=== PATIENT | female | born 1965 | race American Indian/Alaskan Native ===

== ENCOUNTER 2020-09-14 11:30 | Outpatient (CLI) | payer OTHER ==
--- NOTE | 2020-09-14 12:29 | XRay Report ---
RIGHT KNEE 3 VIEWS INDICATION / CLINICAL INFORMATION: RIGHT KNEE PAIN. COMPARISON: None available. FINDINGS: Mild lateral degenerative change. Bony density adjacent to the medial femoral condyle may represent o ld avulsion injury. No other significant skeletal abnormality Signer Name: You Cason MD FACR Signed: 09/14/2020 12:24 PM Workstation Name: [id number]
== END 2020-09-14 11:31 | disposition home or self-care (01) ==
LOC: XRAY 11:30
PROVIDERS: ATTEND Orthopaedic Surgery
DX: M17.11 Unilateral primary osteoarthritis, right knee (principal)

== ENCOUNTER 2020-10-14 06:47 | Inpatient (IN) | payer OTHER ==
--- NOTE | 2020-10-11 10:04 | Anesthesia Day of Surgery ---
Anesthesia Day of Surgery - Day of Surgery Patient Examined: Yes Patient H&P Reviewed: Yes Patient is NPO: Yes
--- NOTE | 2020-10-11 10:05 | Anesthesia Consultation ---
Anesthesia Consult and Med Hx Date of service: 10/14/20 - Airway Anesthetic Teeth Evaluation: Chipped, Crowns ROM Head & Neck: Adequate Mental/Hyoid Distance: Adequate Mallampati Class: Class III Intubation Access Assessment: Probably Good - Pre-Operative Health Status ASA Pre-Surgery Classification: ASA2 Proposed Anesthetic Plan: General (Pt requested GA; declined SAB) Nerve Block: AC - Pulmonary Hx Smoking: Yes (STOPPED X 45 DAYS-BLACK & MILDS 2/ DAY) Hx Respiratory Symptoms: No (+2FS) Hx Sleep Apnea: No (SCOUT PRE SCREEN LOW RISK.) - Cardiovascular System Hx Hypertension: Yes (X 8 YRS) - Central Nervous System Hx Psychiatric Problems: No - Endocrine Hx Renal Disease: No Hx Liver Disease: No Hx Non-Insulin Dependent Diabetes: No - Hematic Hx Anemia: No Hx Sickle Cell Disease: No - Other Systems Hx Cancer: No
[2020-10-11 10:57] LABS: Hematocrit 40.4 % (30.3-42.9); Hemoglobin 13.3 gm/dl (10.1-14.3); Mean Corpuscular HGB Conc 33 % (30-34); Mean Corpuscular Volume 88 fl (79-97); Platelet Count 271 K/mm3 (140-440); Red Blood Count 4.59 M/mm3 (3.65-5.03); Red Cell Distribution Width 16.1 % (13.2-15.2)
[2020-10-11 11:27] LABS: Alanine Aminotransferase 19 units/L (7-56); Blood Urea Nitrogen 12 mg/dL (7-17); Calcium 9.1 mg/dL (8.4-10.2); Hemolysis Index 8
[2020-10-11 11:37] LABS: BUN/Creatinine Ratio 24
[~2020-10-14 06:47] MED LIST: BUPIVACAINE/PF (0.5%) 5 MG/1 ML 30 ML VIAL INFILTRATI ONE; KETOROLAC 30 MG/1 ML INJ ONE; MORPHINE 10 MG/1 ML INJ ONE; SODIUM CHLORIDE 0.9% 100 ML ONE; SODIUM CHLORIDE 0.9% 250ML 250 ML ONE; TRANEXAMIC ACID 1,000 MG/10 ML ONE; ceFAZolin/Water 2 GM/20 ML 2 GM/20 ML SYRINGE IV NR
[2020-10-14] MEDS ORDERED: LACTATED RINGERS 1,000 ML IV SCH (08:00)
--- NOTE | 2020-10-14 08:13 | Anesthesia Day of Surgery ---
Anesthesia Day of Surgery - Day of Surgery Patient Examined: Yes Patient H&P Reviewed: Yes Patient is NPO: Yes
[2020-10-14] MEDS ORDERED: LACTATED RINGERS 1,000 ML ONE (08:23)
[2020-10-14] MEDS ORDERED: ROPIVACAINE/PF (0.5%) 5 MG/1 ML 30 ML VIAL ONE (08:24)
[2020-10-14] MEDS ORDERED: fentaNYL 100 MCG/2 ML INJ ONE (08:24)
[2020-10-14] MEDS ORDERED: MIDAZOLAM 2 MG/2 ML INJ ONE (08:24)
[2020-10-14] MEDS ORDERED: LIDOCAINE (1%) 10 MG/1 ML VIAL 20 ML MDV ONE (08:28)
[2020-10-14] MEDS ORDERED: propofoL 200 MG/20 ML VIAL IV ONE ×4 (09:49→11:15)
--- NOTE | 2020-10-14 10:16 | Event Note ---
Date: 10/14/20 Pt ID'd and consented for spinal anesthesia. Skin prepped and draped. Spinal site ID'd (L3/L4). Local (lidocaine 1% 3ml) to skin. Spinal introducer to skin. Spinal needle inserted. + for CSF. - for blood. Aspiration and swirl noted in syringe. Bipivicaine 9mg injected. Pt laid flat. No distress noted. Vitals remain stable.
[2020-10-14] MEDS ORDERED: BUPIVACAINE/PF (0.5%) 5 MG/1 ML 30 ML VIAL INFILTRATI ONE (10:41)
[2020-10-14] MEDS ORDERED: KETOROLAC 30 MG/1 ML INJ IV ONE (10:42)
[2020-10-14] MEDS ORDERED: MORPHINE 10 MG/1 ML INJ IM ONE (10:42)
[2020-10-14] MEDS ORDERED: SODIUM CHLORIDE 0.9% 250 ML IVPB IV ONE (10:43)
[2020-10-14] MEDS ORDERED: SODIUM CHLORIDE 0.9% IRR 1,500 ML BOTTLE IR ONE (10:43)
[2020-10-14] MEDS ORDERED: WATER FOR IRRIG STERILE 1,500 ML BOTTLE IR ONE (10:45)
[2020-10-14] MEDS ORDERED: PROMETHAZINE 25 MG RECT SUPP PR PRN (11:33)
[2020-10-14] MEDS ORDERED: ZOLPIDEM 5 MG TAB PO PRN (11:33)
[2020-10-14] MEDS ORDERED: MAGNESIUM HYDROXIDE (MOM) ORAL LIQD UDC PO PRN (11:33)
[2020-10-14] MEDS ORDERED: IBUPROFEN 800 MG TAB PO PRN (11:33)
--- NOTE | 2020-10-14 11:44 | Procedure Note ---
Date of procedure: 10/14/20 Pre-op diagnosis: Severe arthritis right knee Post-op diagnosis: same Procedure: [Right] total knee replacement Procedure The patient was brought to the OR after being given a obturator nerve block and preoperative holding she was placed on the OR table supine position following induction elevation of anesthesia the patient is [right] lower extremity was prepped and draped in the usual sterile manner. A timeout procedure was done to identify the patient in the correct operative site. The leg was exsanguinated followed by inflation of the pneumatic tourniquet to 300 mmHg. A midline incision was made over the patella was taken down distally towards the tibial tubercle next the medial retinaculum was incised and the patella was inverted examination of the patient's knee joint revealed typical osteoarthritic changes with large bone spurs noted primarily in the medial compartment both the femoral and tibial's articular surfaces exhibited bare bone and large peripheral osteophytes next a large drill bit was used to enter the medullary canal this was followed by placement of the distal femoral cutting Jig the distal femur was resected approximately 8-9 mm of bone was removed at this time. Attention was turned to the patient's proximal tibia using a external alignme guide the bone was cut using the medial surface as the low point of care was taken to protect the medial collateral ligaments the tibial articular surface was then sized, A #4 tibial based ray was selected this was followed by placement of the fixation hole or keel into the proximal tibial artery medullary canal. Attention was turned to the distal femur and using a 4 and 1 cutting block a #4 component was selected AP anterior and posterior as well as Smith cuts were made a #4 femoral component was placed along with 10mm polyethylene tibial component and the knee was then taken to a range of motion she appeared to have stability in both the flexion and extension FOLLOWING this the trial components were removed the knee was then copiously irrigated any remaining soft tissue and bony debris were removed at this time next the cement was next and following this the tibial components were inserted beginning with the based ray followed by the polyethylene insert The femoral component was added the excess were removed the knee was held in extension until the cement hardened following hardening of cement the knee was then brought back into of flexion any remaining soft tissue and bony debris were removed at this time. The wound again was irrigated and was closed in a standard routine fashion. Dressings were applied the patient tolerated the procedure there were no complications she was then taken to post anesthesia recover Anesthesia: regional Surgeon: AMI COLLINS Mechanical Cad Designer: LYNDON JACOBS Estimated blood loss: 50-100ml Pathology: none Condition: stable Disposition: PACU
[2020-10-14] MEDS ORDERED: ONDANSETRON 4 MG/2 ML INJ IV PRN (12:17)
[2020-10-14] MEDS ORDERED: HYDROmorphone 1 MG/1 ML INJ ONE ×2 (12:17→12:42)
[2020-10-14] MEDS ORDERED: HYDROmorphone 1 MG/1 ML INJ IV PRN (12:17)
[2020-10-14] MEDS: HYDROmorphone 1 MG/1 ML INJ IV PRN ×2 (12:19→12:29)
--- NOTE | 2020-10-14 12:32 | XRay Report ---
RIGHT KNEE 2 VIEWS INDICATION / CLINICAL INFORMATION: Postop evaluation. COMPARISON: None available. FINDINGS: Right total knee arthroplasty. Normal alignment. Signer Name: You Cason MD FACR Signed: 10/14/2020 12:28 PM Workstation Name: [id number]
--- OUTSIDE RECORDS SUMMARY | 2020-10-14 14:31 | External Medical Summary ---
:1965 Author Organization [facility], [facility] Address [address] [place] [address] Care Team Providers Name Role Phone Jason Lloyd Unavailable [phone] PROBLEMS Type Condition ICD9-CM [id number] Onset Condition SNOMED Code Notes Code Code Dates Status Problem Unilateral M17.11 Active 548456179 primary osteoarthritis , right knee ALLERGIES No Known Allergies ENCOUNTERS from 1965 to 2020-10-14 Encounter Location Date Provider Diagnosis [facility] [address] [place] [address] Sep, [place] [address] IMMUNIZATIONS No Information SOCIAL HISTORY Sex Assigned At : Social History Observation Description Sex Assigned At Unknown REASON FOR REFERRAL from 1965 to 2020-10-14 Diagnosis 1 Unilateral primary osteoarth ritis, right knee Referral Organization [facility] Referring Provider First Name Jason Referring Provider Last Name Gabino Referring Provider Specialty Orthopedic Surgery Referring Provider Referring Provider email [email or web address] Referred Provider [facility], - Referral Priority Routine VITAL SIGNS No information MEDICATIONS Medication SIG (Take, Route, Notes Start Date End Date Status Frequency, Duration) Ambien 10 MG 1 tablet at bedtime as Active needed Orally Once a day Percocet 5-325 mg 30 one or two tablets orally Sep, 0 Active 5-325 mg every four to six hours prn pain Linzess 145 MCG 1 capsule at least 30 Active minutes before the first meal of the day on an empty stomach Orally Once a day for 30 day(s) PROCEDURES No Information RESULTS No Results REASON FOR VISIT Total Knee Replacement MEDICAL (GENERAL) HISTORY Type Description Date Medical History HTN Medical History IBS Medical History Arthritis/joint pain Medical History Back Pain Surgical History Gastric Bypass 1999 Surgical History Partial Hysterectomy 1997 Surgical History Hernia repair 2000 Surgical History Bounone removal 2011 Goals Section No Information Health Concerns No Information MEDICAL EQUIPMENT No Information MENTAL STATUS No Information FUNCTIONAL STATUS No Information ASSESSMENTS No Information PLAN OF TREATMENT Medication Medication Name Sig Start Date Stop Date Percocet 5-325 mg 30 5-325 mg one or two tablets orally every 16 Sep, 2020 four to six hours prn pain Referrals Referral Date Details Insurance Providers Payer Name Payer Address Payer Insured Patient Coverage Cover age End Phone Name Relationship to Start Date Keshav e Insured [employer] [address] [phone] Joanie Manzo [facility] [address] [facility]- [address] [facility] [employer]
[2020-10-14] MEDS: KETOROLAC 30 MG/1 ML INJ IV PRN (14:45)
--- NOTE | 2020-10-14 15:56 | Post Anesthesia Evaluation ---
- Post Anesthesia Evaluation Patient Participated: Yes Airway Patent: Yes Stable Respiratory Function: Yes Nausea/Vomiting: No Temp > 96.8F: Yes Pain Manageable: Yes Adequeate Hydration: Yes Anesthesia Complications: No Block Receding Appropriately: Not Applicable Patient on Ventilator: No
[2020-10-14] MEDS: MORPHINE 4 MG/1 ML INJ IV PRN ×2 (18:12→23:05)
[2020-10-15] MEDS: MORPHINE 4 MG/1 ML INJ IV PRN ×2 (04:37→14:10)
[2020-10-15] MEDS ORDERED: ENOXAPARIN 40 MG/0.4 ML INJ SUB-Q SCH (10:00)
[2020-10-15] MEDS: KETOROLAC 30 MG/1 ML INJ IV PRN (11:05)
[2020-10-15 11:59] VITALS: BP 108/60
--- NOTE | 2020-10-15 14:06 | Progress Note ---
Assessment and Plan Patient completed physical therapy did very well will discharge to home with home health Return to office in 10 days for follow-up visit Subjective Date of service: 10/15/20 Interval history: no major c/o's, doing well with PT Objective Vital signs: Vital Signs - 12hr 10/15/20 10/15/20 10/15/20 03:56 05:11 08:20 Temperature 98.4 F 98.2 F Pulse Rate 70 70 Respiratory 20 16 Rate Blood Pressure 113/65 110/58 O2 Sat by Pulse 96 98 Oximetry 10/15/20 11:05 Temperature 97.9 F Pulse Rate 72 Respiratory 16 Rate Blood Pressure 108/60 O2 Sat by Pulse 97 Oximetry - Labs CBC & BMP: 10/11/20 10:10 10/11/20 10:10
--- OUTSIDE RECORDS SUMMARY | 2020-10-25 08:12 | External Medical Summary ---
:1965 Author Organization [facility], [facility] Address [address] [place] [address] Care Team Providers Name Role Phone Jason Lloyd Unavailable [phone] PROBLEMS Type Condition ICD9-CM [id number] Onset Condition SNOMED Code Notes Code Code Dates Status Problem Unilateral M17.11 Active 616827506 primary osteoarthritis , right knee ALLERGIES No Known Allergies ENCOUNTERS from 1965 to 2020-10-14 Encounter Location Date Provider Diagnosis [facility] [address] [place] [address] Sep, [place] [address] IMMUNIZATIONS No Information SOCIAL HISTORY Sex Assigned At : Social History Observation Description Sex Assigned At Unknown REASON FOR REFERRAL from 1965 to 2020-10-[address] [facility] Referring Provider First Name Jason Referring Provider Last Name Gabino Referring Provider Specialty Orthopedic Surgery Referring Provider Referring Provider email [email or web address] Referred Provider [facility], - Referral Priority Routine VITAL SIGNS No [...] Hernia repair 2000 Surgical History Bounone removal 2012 Goals Section No Information Health Concerns No [...] Date Keshav e Insured [employer] [address] [phone] Joanie Manzo [facility] [address] [facility] [place] [address] [facility] [employer]
--- OUTSIDE RECORDS SUMMARY | 2020-10-25 08:13 | External Medical Summary ---
:1965 Author Organization [facility], [facility] Address [address] [place] [address] Care Team Providers Name Role Phone Jason Lloyd Unavailable [phone] PROBLEMS Type Condition ICD9-CM [id number] Onset Condition SNOMED Code Notes Code Code Dates Status Problem Unilateral M17.11 Active 409081769 primary osteoarthritis , right knee ALLERGIES No Known Allergies ENCOUNTERS from 1965 to 2020-10-14 Encounter Location Date Provider Diagnosis [facility] [address] [place] [address] Sep, [place] [address] IMMUNIZATIONS No Information SOCIAL HISTORY Sex Assigned At : Social History Observation Description Sex Assigned At Unknown REASON FOR REFERRAL from 1965 to 2020-10-14 Referral Organization [facility] Referring Provider First Name Jason Referring Provider Last Name Gabino Referring Provider Specialty Orthopedic Surgery Referring Provider Referring Provider email [email or web address] Referred Provider [facility], - Referral Priority Routine VITAL SIGNS No [...] Date Keshav e Insured [employer] [address] [phone] Joanie Manzo [facility] [address] [facility]- [address] [facility] [employer]
== END 2020-10-15 16:40 | disposition home or self-care (01) | DRG 470 ==
LOC: 3A 06:47 → EDBD 08:00 → 3B-SURG 12:19
PROVIDERS: ADMIT Orthopaedic Surgery; ATTEND Orthopaedic Surgery
PROC: 0SRC0J9 Replacement of Right Knee Joint with Synthetic Substitute, Cemented, Open Approach (ICD-10-PCS; principal; 2020-10-14)
DX: M17.11 Unilateral primary osteoarthritis, right knee (principal)
CPT/HCPCS: 36415; 64450; 80053; 85027; 88304; 88305; 88311; G0378; C1776; J1170; J1650; J1885; J2250; J2270; J2405; J2704; J2795; J3010; J7050; J7120

== ENCOUNTER 2022-06-27 10:01 | Outpatient (CLI) | payer OTHER ==
--- NOTE | 2022-06-27 11:09 | XRay Report ---
RIGHT KNEE 3 VIEWS INDICATION: M17.11. COMPARISON: None. IMPRESSION: Right knee arthroplasty changes are again noted. The hardware appears well applied with no evidence for loosening or infection. The bony structures are demineralized. No acute process is n oted. Signer Name: Lee Phan Jr, MD Signed: 06/27/2022 11:04 AM Workstation Name: [id number]
== END 2022-06-27 10:02 | disposition home or self-care (01) ==
LOC: XRAY 10:01
PROVIDERS: ATTEND Orthopaedic Surgery
DX: M17.11 Unilateral primary osteoarthritis, right knee (principal); Z96.651 Presence of right artificial knee joint